=== PATIENT | male | born 1975 | race Caucasian/White ===

== ENCOUNTER 2022-09-25 14:28 | Emergency (ER) | payer MEDICAID ==
[~2022-09-25] VITALS: Ht 180.3 cm; Wt 78.2 kg
--- NOTE | 2022-09-25 15:01 | NUR ---
[facility] ([facility]) #[phone] WANTS TO BE CALLED FOR ANY QUESTION
[2022-09-25] MEDS ORDERED: LORazepam 1 MG tablet PO ONE ×2 (19:50→20:00)
[2022-09-25 20:14] LABS: BASOPHILS # (AUTO) 0.1 X10'3 (0-0.2); BASOPHILS % (AUTO) 0.5 % (0-1); EOSINOPHILS # (AUTO) 0.2 X10'3 (0-0.9); EOSINOPHILS % (AUTO) 1.6 % (0-6); LYMPHOCYTES # (AUTO) 1.7 X10'3 (1.1-4.8); LYMPHOCYTES % (AUTO) 16.2 % (21-51); MEAN PLATELET VOLUME 8.2 FL (7.4-10.4); MONOCYTES # (AUTO) 1.3 X10'3 (0-0.9); MONOCYTES % (AUTO) 12.7 % (2-12); NEUTROPHILS # (AUTO) 7.2 X10'3 (1.8-7.7); PLATELET COUNT 132 X10'3 (140-440); WHITE BLOOD COUNT 10.4 X10'3 (4.5-11.0)
[2022-09-25 20:25] LABS: ALANINE AMINOTRANSFERASE 132 U/L (12-78); ALBUMIN 4.4 G/DL (3.4-5.0); ALBUMIN/GLOBULIN RATIO 1.1 (1.1-1.5); ALKALINE PHOSPHATASE 63 IU/L (46-116); ANION GAP 15 (8-16); ASPARTATE AMINO TRANSFERASE 331 U/L (10-37); BILIRUBIN,TOTAL 2.3 MG/DL (0.1-1.0); BLOOD UREA NITROGEN 28 MG/DL (7-18); BUN/CREATININE RATIO 28.6 (5.4-32.0); CALCIUM 9.9 MG/DL (8.5-10.1); CHLORIDE 94 MMOL/L (99-107); CREATININE 0.98 MG/DL (0.60-1.10); GLUCOSE 83 MG/DL (70-104); POTASSIUM 3.1 MMOL/L (3.5-5.1); SODIUM 134 MMOL/L (135-145); TOTAL CARBON DIOXIDE 24.6 MMOL/L (24-32); TOTAL PROTEIN 8.5 G/DL (6.4-8.2); eGFR 82 ML/MIN
--- NOTE | 2022-09-25 20:25 | NUR ---
PLEASE CALL [facility] [phone] UPON PT'S DISCHARGE. PT HAS NO MONEY OR PLACE TOGO. SISTER WILL MAKE ARRANGEMENTS TO HELP AT DISCHARGE.
[2022-09-25 20:34] LABS: ETHANOL < 0.010 GM/DL (0.0-0.010)
[2022-09-25 20:42] LABS: HEMATOCRIT 37.7 % (42.0-52.0); MEAN CORPUSCULAR HEMOGLOBIN 34.8 PG (27.0-31.0); MEAN CORPUSCULAR VOLUME 100.8 FL (78-98); RED BLOOD COUNT 3.74 X10'6 (4.70-6.10)
[2022-09-25 20:43] LABS: MEAN CORPUSCULAR HGB CONC 34.5 g/dL (33.0-36.5); RED CELL DISTRIBUTION WIDTH 14.8 % (11.5-14.5)
--- NOTE | 2022-09-25 21:00 | NUR ---
PT HAVING AUDIO AND VISUAL HALLUCINATION. PT YELLING AT SINK. WHEN ASKING PT WHAT GOING ON PT REPLIES " MY SISTER IS TAKING MY BOTTLES". PT WAS REDIRECTABLE WITH CONVERSATION. INFORMED
[2022-09-25] MEDS ORDERED: potassium Cl 20 mEq SR tablet PO STA (21:23)
[2022-09-25 21:46] LABS: PLATELET ESTIMATE DECREASED
[2022-09-25 21:47] LABS: SPHEROCYTES FEW
--- NOTE | 2022-09-25 22:56 | NUR ---
The patient moved to bed 25 in the ER overflow. He was cooperative with staff. He denies auditory or visual hallucinations but makes delusional statements about Emely Parton knocking at his door. He denies a history of mental illness but can be heard responding to internal stimuli. He denies thoughts to harm himself or others. He denies that he has ever been in a psychiatric facility.
[2022-09-25] MEDS ORDERED: NO HOME MEDS (23:05)
[2022-09-25 23:12] LABS: CLARITY,URINE CLEAR (Clear); COLOR,URINE YELLOW (Yellow); GLUCOSE, URINE NEGATIVE (Neg); KETONES,URINE 40 mg/dl (Neg); LEUKOCYTE ESTERASE ,URINE NEGATIVE (Neg); NITRITES, URINE NEGATIVE (Neg); OCCULT BLOOD,URINE NEGATIVE (Neg); PROTEIN,URINE NEGATIVE (Neg); UROBILINOGEN,URINE 0.2 E.U/dL (0.2-1.0)
[2022-09-25 23:17] LABS: UA COLLECTION TYPE VOIDED
[2022-09-25 23:21] LABS: URINE AMPHETAMINE SCREEN NEGATIVE (Neg); URINE BARBITUATE SCREEN NEGATIVE (Neg); URINE BENZODIAZEPINES SCREEN NEGATIVE (Neg); URINE CANNABINOID SCREEN POSITIVE (Neg); URINE COCAINE SCREEN NEGATIVE (Neg); URINE METHADONE SCREEN NEGATIVE (Neg); URINE OPIATE SCREEN NEGATIVE (Neg); URINE PHENCYCLIDINE SCREEN NEGATIVE (Neg)
--- NOTE | 2022-09-25 23:50 | NUR ---
PACKET SENT TO [facility]
--- NOTE | 2022-09-26 00:23 | NUR ---
The patient is resting on his bed but can be heard talking to himself
--- NOTE | 2022-09-26 02:06 | NUR ---
The patient appears to be sleeping
--- NOTE | 2022-09-26 02:30 | NUR ---
Received a call from the patient's sister who lives in [place]. She is very concerned about the patient being discharged from the hospital to the street. She stated he doesn't have a phone or means to plan for himself. She stated he has no mental health history and was placed in the [facility] but then began having delirium type symptoms. She stated he has been missing for the past two days. If he is discharged she wants to be notified and involved in his DC planning and she wants to help make arrangements to get him safely back to his home in [facility].
--- NOTE | 2022-09-26 04:23 | NUR ---
The patient appears to be sleeping
--- NOTE | 2022-09-26 04:27 | NUR ---
Discussed case with Dr. Clark. Per his sister he has no psychiatric history but has had a recent fall and an abrasion to his head.
--- NOTE | 2022-09-26 04:45 | NUR ---
Patient to CT scan
--- NOTE | 2022-09-26 05:00 | NUR ---
Patient back from CT scan. Dressing applied to abrasion right forehead
--- NOTE | 2022-09-26 06:30 | NUR ---
Pt is lying in bed on his right side, he appears to be sleeping.
--- NOTE | 2022-09-26 07:24 | NUR ---
[phone] He has been working with the patient for the past 3 weeks. Pt is from [facility], was admitted to [facility]. He began exhibiting s/sx of delirium after 48-72 hours, not many physical symptoms but VH/AH. Pt reported seeing things like scorpions. Plan was to send him to the ER for evaluation but he wandered off, roamed around [place] then was picked up by [employer], and taken to [facility] before being brought here. Pt has a home in [place]. Dereck wished to ensure that pt is not going to be released to the streets of [place]. Dereck states that [facility] could provide transportation back to [place] or pt's sister would be willing to pay for an Uber. Pt is a chronic alcoholic with no previous psych history.
--- NOTE | 2022-09-26 08:29 | NUR ---
Pt up to the bathroom.
--- NOTE | 2022-09-26 09:52 | NUR ---
Pt ate his breakfast then went back to sleep.
--- NOTE | 2022-09-26 11:45 | NUR ---
Pt is being evaluated by [facility].
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
--- NOTE | 2022-09-26 12:41 | NUR ---
Pt is not being placed on a 5150. He does not wish to return to [place]. Sister states she will arrange a hotel room for him.
--- NOTE | 2022-09-26 12:45 | NUR ---
Sister Khushbu on phone transferred to [employer] phone to speak with her brother.
[2022-09-26 13:32] VITALS: BP 103/60
--- NOTE | 2022-09-26 13:34 | NUR ---
Sister called and said [facility] transportation will transport pt home to [place] today but they need the hospital to call them to verify he is being discharged. Spoke with George from [facility]. He is arranging transportation with [employer]. The transportation company will call us with a pick up worker time.
--- NOTE | 2022-09-26 14:32 | NUR ---
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
--- NOTE | 2022-09-26 14:42 | NUR ---
contacted patients sister parul and notified her that transportation was arranged and the time frame for arrival.
[2022-09-26] MEDS ORDERED: nicotine 21mg patch - 24 hr TD ONE (15:10)
--- NOTE | 2022-09-26 15:21 | NUR ---
Pt asked for a nicotine patch.
--- NOTE | 2022-09-26 15:50 | NUR ---
ER main admitting called to state that pt's ride is here.
--- NOTE | 2022-09-26 15:53 | NUR ---
Pt discharged home. Picked up by [facility]. All belongings returned,pt did not have any pants and so was provided with sweat pants. Per sister, she will have his belongings left at [facility] mailed to him. Dereck from [facility] called and was informed of discharge. He will notify pt's sister Khushbu of time of discharge.
== END 2022-09-26 15:53 ==
LOC: ER 14:28
DX: F10.10 Alcohol abuse, uncomplicated (principal); Z20.822 Contact with and (suspected) exposure to COVID-19; F17.200 Nicotine dependence, unspecified, uncomplicated; F12.90 Cannabis use, unspecified, uncomplicated; Z72.89 Other problems related to lifestyle; Z59.00 Homelessness unspecified; Y90.0 Blood alcohol level of less than 20 mg/100 ml
CPT/HCPCS: 36415; 70450; 80053; 80305; 80320; 81003; 84443; 85008; 85025; 87811; 99285; A6222; A6449